=== PATIENT | female | born 1940 | race Caucasian/White ===

== ENCOUNTER 2023-12-08 16:03 | Emergency (ER) | payer OTHER ==
[~2023-12-08] VITALS: Ht 170.2 cm; Wt 64.4 kg
[2023-12-08] MEDS ORDERED: RIVA10TA PO (16:13)
[2023-12-08] MEDS ORDERED: ONDANSETRON 4 MG/2 ML VIAL ONE ×3 (16:32→18:56)
[2023-12-08] MEDS ORDERED: TDAP DIPH,PERTUSS,TET VAC/PF 0.5 ML DISP.SYRIN IM ONE (16:33)
[2023-12-08] MEDS: ONDANSETRON 4 MG/2 ML VIAL IV ONE ×3 (16:40→18:56)
[2023-12-08] MEDS: TDAP DIPH,PERTUSS,TET VAC/PF 0.5 ML DISP.SYRIN IM ONE (16:44)
[2023-12-08] MEDS ORDERED: KETAMINE HCL 500 MG/5 ML VIAL ONE (17:12)
[2023-12-08] MEDS: KETAMINE HCL 500 MG/10 ML INJ IV ONE (18:16)
[2023-12-08] MEDS ORDERED: HYDROCODONE/APAP 5-325MG TABLET ONE (18:24)
[2023-12-08] MEDS: HYDROCODONE/APAP 5-325MG TABLET PO ONE (18:25)
[2023-12-08] MEDS ORDERED: SULF1TAB48 PO ×2 (18:26→20:00)
[2023-12-08] MEDS ORDERED: HYDR-3972 PO ×2 (18:26→20:00)
[2023-12-08] MEDS ORDERED: MORPHINE SULFATE 4 MG/1 ML DISP.SYRIN ONE ×2 (18:56→20:35)
[2023-12-08] MEDS ORDERED: SULFAMETH/TRIMETH 800/160 MG TABLET ONE (18:56)
[2023-12-08] MEDS: MORPHINE SULFATE 4 MG/1 ML DISP.SYRIN IV ONE ×2 (18:58→20:42)
[2023-12-08] MEDS: SULFAMETH/TRIMETH 800/160 MG TABLET PO ONE (19:06)
[2023-12-08 21:29] VITALS: BP 126/66; TEMP 98.9; O2SAT 94
== END 2023-12-08 21:20 | disposition home or self-care (01) ==
LOC: ER 16:04
DX: S81.812A Laceration without foreign body, left lower leg, initial encounter (principal); S81.811A Laceration without foreign body, right lower leg, initial encounter; S41.112A Laceration without foreign body of left upper arm, initial encounter; Z98.890 Other specified postprocedural states; Z79.891 Long term (current) use of opiate analgesic; Z79.899 Other long term (current) drug therapy; Z88.0 Allergy status to penicillin; W18.39XA Other fall on same level, initial encounter; Y93.89 Activity, other specified; Y92.89 Other specified places as the place of occurrence of the external cause; Y99.8 Other external cause status
CPT/HCPCS: 99285; 96374; 96375; 90715; 96376; J3490; J2405 ×2; J2270 ×2; A4606; A4663